=== PATIENT | female | born 1965 | race Caucasian/White ===

== ENCOUNTER → 2017-03-12 | Outpatient (REF) | payer OTHER ==
[2017-03-12 13:49] LABS: RETIC HEMOGLOBIN EQUIVALENT 35.7 pg (24-36); RETICULOCYTE % 2.5 % (0.5-1.5)
[2017-03-12 13:57] LABS: PERCENT SATURATION 16.3 % (13.2-45.0)
[2017-03-12 13:58] LABS: INR 1.15
[2017-03-12 14:02] LABS: REASON FOR REVIEW COMPREHENSIVE REVIEW
[2017-03-14 14:16] LABS: COAGULATION FACTOR X ACTIVITY 56 % (76-183)
[2017-03-20 16:12] LABS: MISCELLANEOUS TEST LAB See Separate Report
== END ==
LOC: M LAB REF 13:01
PROVIDERS: ATTEND Internal Medicine Medical Oncology
DX: D64.9 Anemia, unspecified (principal)

== ENCOUNTER → 2017-08-01 | Outpatient (REF) | payer OTHER ==
[2017-08-01 10:44] LABS: INR 1.09; PARTIAL THROMBOPLASTIN TIME 31.3 SECONDS (26.8-37.9); PROTHROMBIN TIME 14.3 SECONDS (12.4-14.5)
== END ==
LOC: M LAB REF 10:13
DX: D64.9 Anemia, unspecified (principal)
CPT/HCPCS: 85610

== ENCOUNTER → 2017-08-16 | Outpatient (REF) | payer OTHER ==
[2017-08-16 14:06] LABS: FERRITIN 29 NG/ML (8-252); IRON (FE) 115 UG/DL (50-170); PERCENT SATURATION 36.6 % (13.2-45.0); TOTAL IRON BINDING CAPACITY 314 UG/DL (250-450)
[2017-08-16 15:59] LABS: FOLATE > 24.0 NG/ML (>5.4)
[2017-08-19 14:11] LABS: HOMOCYST(E)INE SERUM 4.2 umol/L (0.0-15.0)
[2017-08-19 14:11] LABS: METHYLMALONIC ACID 102 nmol/L (0-378)
== END ==
LOC: M LAB REF 13:32
DX: D50.9 Iron deficiency anemia, unspecified (principal)